=== PATIENT | female | born 1945 | race Hispanic/Latino ===

== ENCOUNTER 2017-01-29 14:02 | Outpatient (CLI) | payer MEDICARE ==
--- NOTE | 2017-01-30 08:02 | Vascular Lab Report ---
Right Lower Extremity Venous Duplex Study: Reason for Exam: Swelling of the right lower extremity. Comments on the Right: Nonocclusive deep venous thrombus noted in the right femoral vein. The remaining veins visualized are freely compressible without evidence of internal echogenicity. Spontaneous and phasic flow is present proximally. Comments on the Left: A limited duplex study was done of the proximal veins of the left lower extremity. All veins visualized are freely compressible without evidence of internal echogenicity. Flow is spontaneous and phasic throughout. No evidence of acute or chronic thrombus is seen in any of the vessels visualized. Impression: Age indeterminant deep venous thrombosis in the right lower extremity.
== END 2017-01-29 14:03 | disposition home or self-care (01) ==
LOC: VAS 14:02
PROVIDERS: ATTEND Internal Medicine Rheumatology
DX: I82.411 Acute embolism and thrombosis of right femoral vein (principal)